=== PATIENT | male | born 1985 | race Hispanic/Latino ===

== ENCOUNTER 2025-04-16 12:13 | Emergency (ER) | payer SELFPAY ==
[2025-04-16 12:16] VITALS: BP 156/78
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
[2025-04-16] MEDS: TYLENOL 1000 MG PO (13:30)
[2025-04-16] MEDS: MOTRIN 800 MG PO (13:30)
[2025-04-16] MEDS: ROXICODONE 5 MG PO (13:41)
== END 2025-04-16 14:15 | disposition home or self-care (01) ==
LOC: EMR 12:13
PROVIDERS: EMERGENCY PHYSICIAN Emergency Medicine
DX: R07.89 Other chest pain (principal); V19.9XXA Pedal cyclist (driver) (passenger) injured in unspecified traffic accident, initial encounter; Y93.55 Activity, bike riding
CPT/HCPCS: 99284; 71101; 93005